=== PATIENT | male | born 1945 | race Caucasian/White ===

== ENCOUNTER 2016-10-01 18:29 | Emergency (ER) | payer MEDICARE, BC ==
[2016-10-01 18:44] VITALS: BP 151/89
--- NOTE | 2016-10-01 19:03 | UC ---
Cardiac HPI - HPI Summary HPI Summary: The patient comes in today for: 1. Chest discomfort: Onset: Initially, a couple weeks ago. Palliative/provocative: TUMS helped but not as much as in the past. Body position affected it in the past, but not so much now. Exertion: Initially, he states that exertion has not made this worse, but his later states that yesterday he was not able to do his normal walk at that time because of chest discomfort. The patient states that he has had chest pain starting "a couple weeks ago" but states that he does not have chest pain now--but he states that he has heartburn like discomfort. Quality: Burning in the back of the throat. Initially, pressure-tightness. Region: Retrosternal Severity: 09/14 Time: Constant. Associated symptoms: Nausea: This morning. Diaphoresis: Present --"mild" now. Previous disease (cardiac): None. Lung disease: None. Cardiac testin stress test ok? 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 - Allergy/Home Medications Allergies/Adverse Reactions: Allergies Allergy/AdvReac Type Severity Reaction Status Date / Time Seasonal Allergies Allergy Congestion Uncoded 10/01/16 18:44 Home Medications: Home Medications Calcium Carbonate CHEW TAB* [Tums*] 3 tab PO PRN 10/01/16 [History] Cholecalciferol TAB* [Vitamin D TAB*] 10/01/16 [History] Coenzyme Q10 (Ubidecarenone) [Co Q-10] 10/01/16 [History] Vitamin B Complex CAP* [B Complex CAP*] 1 cap PO DAILY 10/01/16 [History Confirmed 10/01/16] PMH/Surg Hx/FS Hx/Imm Hx Previously Healthy: No - BPH Endocrine History Of: Reports: Dyslipidemia Denies: Diabetes, Thyroid Disease, Hyperthyroidism, Hypothyroidism Cardiovascular History Of: Denies: Cardiac Disorders, Hypertension, Pacemaker/ICD, Myocardial Infarction , Congestive Heart Failure, Atrial Fibrillation, Deep Vein Thrombosis, Bleeding Disorders Respiratory History Of: Denies: COPD, Asthma, Bronchitis, Pneumonia, Pulmonary Embolism GI/ History Of: Denies: Gastroesophageal Reflux, Ulcer, Gastrointestinal Bleed, Gall Bladder Disease, Kidney Stones, Diverticulitis, Renal Disease, Urosepsis Neurological History Of: Denies: TIA, CVA, Dementia, Seizures, Migraine Psychological History Of: Reports: Depression - No medications at this time. Denies: Anxiety, Bipolar Disorder, Schizophrenia, Post Traumatic Stress Disorder Cancer History Of: Denies: Lung Cancer, Colorectal Cancer, Breast Cancer, Prostate Cancer, Cervical Cancer Other History Of: Anticoagulant Therapy - Aspirin daily. Negative For: HIV, Hepatitis B, Hepatitis C - Surgical History Surgical History: Yes Surgery Procedure, Year, and Place: HERNIA REPAIR. SINUS SURGERY. POLYPS REMOVED/DEVIATED SEPTUM REPAIR IN NOSE - Family History Known Family History: Positive: Cardiac Disease - Parents had "heart" problems, stents, pacemaker., Hypertension, Diabetes - Social History Occupation: Retired Lives: With Family Alcohol Use: Daily Alcohol Amount: 1/DAY Substance Use Type: None Smoking Status (MU): Never Smoked Tobacco Review of Systems Constitutional: Negative Skin: Negative Eyes: Negative ENT: Negative Respiratory: Negative Cardiovascular: Chest Pain Gastrointestinal: Negative Genitourinary: Negative All Other Systems Reviewed And Are Negative: Yes Physical Exam Triage Information Reviewed: Yes Appearance: Well-Appearing, No Pain Distress, Well-Nourished Vital Signs: Initial Vital Signs Temp 98.4 F 10/01/16 18:40 Pulse 63 10/01/16 18:40 Resp 16 10/01/16 18:40 BP 151/89 10/01/16 18:40 Pulse Ox 95 10/01/16 18:40 Vital Signs Reviewed: Yes Eyes: Positive: Conjunctiva Clear. Negative: Discharge ENT: Positive: Hearing grossly normal. Negative: Pharyngeal erythema, Nasal congestion, Nasal drainage, TM bulging, TM dull, TM red, Tonsillar swelling, Tonsillar exudate Dental: Negative: Gross Decay/Caries @, Dental Fracture @ Neck: Positive: Supple, Nontender, No Lymphadenopathy. Negative: Nuchal Rigidity Respiratory: Positive: Lungs clear, No respiratory distress, No accessory muscle use. Negative: Crackles, Wheezing Cardiovascular: Positive: RRR, No Murmur Abdomen Description: Positive: Nontender, No Organomegaly, Soft. Negative: Distended Musculoskeletal: Positive: Strength Intact, ROM Intact, No Edema, Other: - No chest tenderness to palpation. Neurological: Positive: Alert Psychological: Positive: Age Appropriate Behavior, Consolable Skin: Negative: rashes, breakdown - Assessment/Plan Course Of Treatment: Patient was told that I was concerned that his chest discomfort may be related to his heart and for that reason recommend that he go to the ER for further testing. He agreed. Last ASA was last night so he will be getting 324 mg before he leaves. He states that he will drive himself there. - Clinical Impression Provider Diagnoses: Chest pain, atypical - Physician Notifications Discussed Patient Care With: Dr. Lujan Time Discussed With Above Provider: 19:23 Discharge - Discharge Plan Condition: Stable Disposition: AGAINST MEDICAL ADVICE
[2016-10-01] MEDS ORDERED: Aspirin Low Dose CHEW TAB* 81 MG PO ONE (19:20)
== END 2016-10-01 19:40 | disposition left against medical advice (07) ==
LOC: UCEAST 18:29
DX: R07.89 Other chest pain (principal); R61 Generalized hyperhidrosis
CPT/HCPCS: 93005; 99212; A9270-GY; G0463

== ENCOUNTER 2016-10-01 19:46 | Observation (INO) | payer BC, MEDICARE ==
[2016-10-01] MEDS ORDERED: Aspirin Low Dose CHEW TAB* 81 MG PO ONE (20:44)
--- NOTE | 2016-10-01 21:01 | ED ---
Vicky Dover Michael, scribed for Tres Gee MD on 10/01/16 at 2047 . HPI Chest Pain - HPI Summary HPI Summary: 71 y/o male comes to the ED presenting with constant mild CP that started today. The pt describes the CP as burning with nausea and no vomiting. He took 3000mg of TUMS Antacid which alleviated the nausea and not the burning CP. The pt also c/o intermittent episodes of chest tightness for the past couple of weeks. The chest tightness is aggravated with exertion and alleviated with rest. He has not followed up with a decision support manager for the previous episodes of CP. - History of Current Complaint Chief Complaint: EDChestPainROMI Time Seen by Provider: 10/01/16 20:36 Hx Obtained From: Patient, Medical Records Onset/Duration: Started Hours Ago, Still Present Timing: Constant Initial Severity: Moderate Current Severity: Moderate Pain Intensity: 0 Pain Scale Used: 0-10 Numeric Chest Pain Location: Diffuse Chest Pain Radiates: No Character: Burning, Tightness Aggravating Factor(s): Exertion Alleviating Factor(s): Rest Associated Signs and Symptoms: Positive: Chest Pain, Nausea. Negative: Vomiting - Allergy/Home Medications Allergies/Adverse Reactions: Allergies Allergy/AdvReac Type Severity Reaction Status Date / Time Seasonal Allergies Allergy Congestion Uncoded 10/01/16 18:44 PMH/Surg Hx/FS Hx/Imm Hx Endocrine/Hematology History: Reports: Hx Anticoagulant Therapy - Aspirin daily. Denies: Hx Diabetes, Hx Systemic Lupus Erythematosus, Hx Thyroid Disease Cardiovascular History: Denies: Hx Congestive Heart Failure, Hx Deep Vein Thrombosis, Hx Hypertension , Hx Myocardial Infarction, Hx Pacemaker/ICD Respiratory History: Denies: Hx Asthma, Hx Chronic Obstructive Pulmonary Disease (COPD), Hx Lung Cancer, Hx Pneumonia, Hx Pulmonary Embolism GI History: Denies: Hx Gall Bladder Disease, Hx Gastrointestinal Bleed, Hx Ulcer, Hx Urosepsis History: Denies: Hx Dialysis, Hx Kidney Stones, Hx Renal Disease Musculoskeletal History: Denies: Hx Rheumatoid Arthritis Neurological History: Denies: Hx Dementia, Hx Migraine, Hx Seizures, Hx Transient Ischemic Attacks (TIA) Psychiatric History: Reports: Hx Depression - No medications at this time. Denies: Hx Anxiety, Hx Schizophrenia, Hx Bipolar Disorder - Cancer History Hx Chemotherapy: No - Surgical History Surgery Procedure, Year, and Place: HERNIA REPAIR. SINUS SURGERY. POLYPS REMOVED/DEVIATED SEPTUM REPAIR IN NOSE Infectious Disease History: No Infectious Disease History: Denies: Traveled Outside the [place] in Last 30 Days - Family History Known Family History: Positive: Cardiac Disease - Parents had "heart" problems, stents, pacemaker., Hypertension, Diabetes, Other - noncontirbutory - Social History Occupation: Retired Lives: With Family Alcohol Use: Daily Alcohol Amount: 1/DAY Substance Use Type: Reports: None Smoking Status (MU): Never Smoked Tobacco Review of Systems Negative: Fever Positive: Chest Pain Positive: Nausea. Negative: Vomiting All Other Systems Reviewed And Are Negative: Yes Physical Exam Triage Information Reviewed: Yes Vital Signs On Initial Exam: Initial Vitals Temp Pulse Resp BP Pulse Ox 98.2 F 67 14 126/80 98 10/01/16 20:18 10/01/16 20:18 10/01/16 20:18 10/01/16 20:18 10/01/16 20:18 Vital Signs Reviewed: Yes Appearance: Positive: Well-Appearing, No Pain Distress Skin: Positive: Warm Head/Face: Positive: Normal Head/Face Inspection Eyes: Positive: IZABELA ENT: Positive: Hearing grossly normal Neck: Positive: Supple Respiratory/Lung Sounds: Positive: Clear to Auscultation, Breath Sounds Present Cardiovascular: Positive: RRR Abdomen Description: Positive: Nontender, Soft Bowel Sounds: Positive: Present Musculoskeletal: Positive: Strength/ROM Intact Neurological: Positive: Sensory/Motor Intact, Alert, Oriented to Person Place, Time, Normal Gait Psychiatric: Positive: Affect/Mood Appropriate Diagnostics - Vital Signs Vital Signs Temp Pulse Resp BP Pulse Ox 10/01/16 20:18 98.2 F 67 14 126/80 98 - Laboratory Result Diagrams: 10/01/16 21:20 10/01/16 21:20 Lab Statement: Any lab studies that have been ordered have been reviewed, and results considered in the medical decision making process. - Radiology CXR Xray Interpretation: No Acute Changes Radiology Interpretation Completed By: Radiologist - EKG EK EKG Rhythm: Sinus Bradycardia - 51 bpm EKG Interpretation: LBBB Chest Pain Course/Dx - Course Course Of Treatment: Discussed pt care with Dr. Oneal (Hospitalist) at 2150 and pt will be accepted as an admission. - Diagnoses Provider Diagnoses: ACS (acute coronary syndrome) Discharge - Discharge Plan Condition: Stable Disposition: ADMITTED TO [facility] The documentation as recorded by the shaylaibeVicky Michael accurately reflects the service I personally performed and the decisions made by me, Tres Gee MD.
--- NOTE | 2016-10-01 21:19 | RAD ---
HISTORY: Chest pain COMPARISONS: September 15, 2014 VIEWS: 2: Frontal dual-energy and lateral views of the chest. FINDINGS: CARDIOMEDIASTINAL SILHOUETTE: The cardiomediastinal silhouette is normal. SAUNDRA: The saundra are normal. PLEURA: The costophrenic angles are sharp. No pleural abnormalities are noted. LUNG PARENCHYMA: There is stable small nodule in the periphery of the left lower lung ABDOMEN: The upper abdomen is clear. There is no subphrenic gas. BONES AND SOFT TISSUES: No bone or soft tissue abnormalities are noted. OTHER: None. IMPRESSION: NO ACTIVE CARDIOPULMONARY DISEASE.
[2016-10-01 21:34] LABS: Hematocrit 43 % (42-52); Hemoglobin 14.1 g/dl (14.0-18.0); Mean Corpuscular HGB Conc 33 g/dl (31-36); Mean Corpuscular Hemoglobin 32 pg (27-31); Mean Corpuscular Volume 95 fL (80-94); Mean Platelet Volume 9 um3 (7.4-10.4); Red Blood Count 4.48 10^6/ul (4.0-5.4); Red Cell Distribution Width 13 % (10.5-15); White Blood Count 6.7 10^3/ul (3.5-10.8)
[2016-10-01] MEDS ORDERED: CMCS: Melatonin (NF) 3 MG TAB PO PRN (21:38)
[2016-10-01] MEDS ORDERED: Morphine INJ* 2 MG/ML 1 ML SYRINGE IV PRN (21:38)
[2016-10-01] MEDS ORDERED: Acetaminophen TAB* 325 MG PO PRN (21:38)
[2016-10-01] MEDS ORDERED: Ondansetron INJ* 2 MG/ML VIAL IV PRN (21:38)
[2016-10-01] MEDS ORDERED: NS 0.9% 1000 ML* 1,000 ML IV SCH (21:45)
[2016-10-01] MEDS ORDERED: Heparin DRIP 25,000 UNITS(*) 25,000 UNITS/500 ML BAG IVPB SCH (21:45)
[2016-10-01 21:50] LABS: Albumin 3.8 g/dL (3.2-5.2); BUN/Creatinine Ratio 26.5 (8-20); EGFR African American 92.1 (>60); EGFR Non-African American 71.6 (>60); Globulin 3.1 g/dL (2-4); Potassium 4.2 mmol/L (3.5-5.0); Total Bilirubin 0.6 mg/dL (0.2-1.0); Total Protein 6.9 g/dL (6.4-8.9)
[2016-10-01 21:52] LABS: Troponin I 0.01 ng/mL (<0.04)
--- NOTE | 2016-10-01 22:29 | HP ---
H&P (Free Text) History and Physical: PCP: Patricia Cai MD Date/Time of Evaluation: 10/01/20162134 CC: chest pain HPI: Mr Dutta is a 71YO male w/o cardiac or vascular HX who reports sudden onset of severe "heartburn" while eating breakfast containing hot sauce. He took TUMS which typically provides rapid relief, but this time did not. It spontaneously subsided to a mild level over an hour or so, but has remained throughout the day. There as associated nausea w/o emesis, but no SOB, sweating , palpitations, or light-headedness. He decided to present to urgent care who referred him on to [facility] ED for further evaluation. Additionally, he has felt more fatigued for the past 2 months. He had an episode of 5/10 chest pressure without associated s/s ~2 weeks ago while shoveling snow that subsided over the hour following cessation. Yesterday while walking [place] and [place] hills [place] he again developed a moderate chest pressure without associations which subsided with rest. Work up is essentially negative with normal vitals, reasonable normal labs, & benign ECG/CXR. Will be admitted for unstable angina. PMedHx LBBB, old BPH depression Allergies Seasonal Allergies Allergy (Uncoded 10/01/16 18:44) Congestion Ambulatory Orders Nursing to reconcile Aspirin Low Dose CHEW TAB* [Aspirin Low Dose TAB*] 81 mg PO DAILY 06/13/13 Cetirizine* [ZyrTEC*] 10 mg PO DAILY PRN 06/13/13 Tamsulosin CAP* [Flomax CAP*] 0.4 mg PO DAILY 06/13/13 Calcium Carbonate CHEW TAB* [Tums*] 3 tab PO PRN 10/01/16 Cholecalciferol TAB* [Vitamin D TAB*] 10/01/16 Coenzyme Q10 (Ubidecarenone) [Co Q-10] 10/01/16 Vitamin B Complex CAP* [B Complex CAP*] 1 cap PO DAILY 10/01/16 PSurgHx nasal surgery R inguinal hernia repair SocHx: no tobacco or recreational drugs, 1-2 alcoholic drinks daily; lives with his ; retired client service professional; full code status FamHx: no early onset heart disease; Mother: colon CA passed in her 80s; Father : colon CA passed in his 90s ROS: as above, otherwise reviewed and all were negative Constitutional: NAD, normally developed, well-nourished elderly white male vitals: Vital Signs Temp 36.8 C 10/01/16 20:18 Pulse 52 10/01/16 21:30 Resp 19 10/01/16 21:30 BP 137/86 10/01/16 21:30 Pulse Ox 96 10/01/16 21:30 Intake & Output 09/30/16 10/01/16 10/01/16 23:59 11:59 23:59 Weight 74.843 kg HEENM: atraumatic; sclera/conjunctiva: non-icteric/clear; hearing: clinically intact; oropharynx: clear, mucosa moist Neck: soft tissue: non-tender; thyroid: normal Pulmonary: clear to auscultation bilaterally, good aeration, no accessory muscle use CV: RR/RR, normal S1S2, no carotid bruit, no jugular venous distention, 2+ B DP/ PT, no edema Abdominal: soft, non-distended, non-tender, no rebound/guarding/rigidity, normoactive bowel sounds, no hepatosplenomegaly or masses, no costovertebral angle tenderness Musculoskeletal: general: non-tender, grossly intact; gait: stable Integumental: normal appearance and texture of exposed skin Psychiatric orientation: AA&O to PPS affect: calm mood: pleasant eye contact: good content: reliable responses: timely insight: good to fair Testing: Lab Results 10/01/16 10/01/16 10/01/16 Range/Units 21:20 21:20 21:20 WBC 6.7 (3.5-10.8) 10^3/ul RBC 4.48 (4.0-5.4) 10^6/ul Hgb 14.1 (14.0-18.0) g/dl Hct 43 (42-52) % MCV 95 H (80-94) fL MCH 32 H (27-31) pg MCHC 33 (31-36) g/dl RDW 13 (10.5-15) % Plt Count 150 (150-450) 10^3/ul MPV 9 (7.4-10.4) um3 Neut % (Auto) 59.9 (38-83) % Lymph % (Auto) 29.5 (25-47) % Rich % (Auto) 6.0 (1-9) % Eos % (Auto) 3.9 (0-6) % Baso % (Auto) 0.7 (0-2) % Absolute Neuts (auto) 4.0 (1.5-7.7) 10^3/ul Absolute Lymphs (auto) 2.0 (1.0-4.8) 10^3/ul Absolute Monos (auto) 0.4 (0-0.8) 10^3/ul Absolute Eos (auto) 0.3 (0-0.6) 10^3/ul Absolute Basos (auto) 0 (0-0.2) 10^3/ul Absolute Nucleated RBC 0 10^3/ul Nucleated RBC % 0 Sodium 138 (133-145) mmol/L Potassium 4.2 (3.5-5.0) mmol/L Chloride 106 (101-111) mmol/L Carbon Dioxide 27 (22-32) mmol/L Anion Gap 5 (2-11) mmol/L BUN 27 H (6-24) mg/dL Creatinine 1.02 (0.67-1.17) mg/dL Est GFR ( Amer) 92.1 (>60) Est GFR (Non-Af Amer) 71.6 (>60) BUN/Creatinine Ratio 26.5 H (8-20) Glucose 87 (70-100) mg/dL Lactic Acid 0.7 (0.5-2.0) mmol/L Calcium 10.0 (8.6-10.3) mg/dL Total Bilirubin 0.60 (0.2-1.0) mg/dL AST 22 (13-39) U/L ALT 19 (7-52) U/L Alkaline Phosphatase 46 (34-104) U/L Troponin I 0.01 (<0.04) ng/mL Total Protein 6.9 (6.4-8.9) g/dL Albumin 3.8 (3.2-5.2) g/dL Globulin 3.1 (2-4) g/dL Albumin/Globulin Ratio 1.2 (1-3) ECG, personally reviewed: sinus LBBB bradycardia rate 51 CXR, personally reviewed: IMPRESSION: NO ACTIVE CARDIOPULMONARY DISEASE. Impression: 71M presenting with symptoms concerning for unstable angina DIAGNOSIS & PLAN Primary unstable angina : old LBBB on ECG : telemetry : aspirin : metoprolol : heparin GTT : 1/2" nitropaste : supplemental oxygen : ECHO in AM : exercise NST in AM : trend troponin : consider cardiology consult in AM pending above results : supportive care Secondary BPH : review meds once reconciled depression : review meds once reconciled Admission Rational: CDU observation for unstable angina DVTp: heparin GTT Code Status: full HCP:
[2016-10-01] MEDS: Pantoprazole IV* 40 MG IV SCH (23:24)
[2016-10-01] MEDS: Nitroglycerin 2% OINT* 1 GM PAK TOPICAL SCH (23:24)
[2016-10-01] MEDS: Metoprolol Succinate XL TAB* 25 MG PO ONE ×2 (23:24→23:38)
[2016-10-02] MEDS ORDERED: Heparin VIAL(*) 5000 UNITS/ML VIAL (FIVE THOUSAND) IV SCH (01:00)
[2016-10-02] MEDS: Nitroglycerin 2% OINT* 1 GM PAK TOPICAL SCH ×2 (05:10→11:27)
[2016-10-02] MEDS: Nitro Patch/OINT Remove PATCH OFF SCH ×2 (05:10→12:41)
[2016-10-02] MEDS: Pantoprazole IV* 40 MG IV SCH (07:50)
[2016-10-02] MEDS ORDERED: Docusate CAP* 100 MG PO SCH (09:00)
[2016-10-02] MEDS ORDERED: Aspirin TAB* 325 MG PO SCH (09:00)
--- NOTE | 2016-10-02 10:40 | ECHO ---
Patient: GLENNA CORTES [facility] Rec#: [id number] : 1945 Date: 10/02/2016 Age: 71y Height: 180.34 cm / 71.0 in Weight: 74.84 kg / 164.9 lbs Sex: M BSA: 1.94 Room#: [facility] Admit Date#: 10/01/2016 Type: Inpatient Referring: Marin Oneal MD Reading: Chad Mendiola MD Clearing Supervisor: Cherelle Shah [facility] Clearing Supervisor: Kayli Taylor CC: Dedrick Cai MD Transthoracic Echocardiogram Indication: Unstable angina BP: 146/77 HR: 50 Rhythm: Bradycardia Findings History: LBBB Technical Comments: The study quality is good. Completed at 0907. Left Ventricle: The left ventricular chamber size is normal. Mild concentric left ventricular hypertrophy is observed. Left ventricular systolic function is at the lower limits of normal. The estimated ejection fraction is 50-55%. There is a left ventricular septal wall motion abnormality observed, possibly due to the presence of a left bundle branch block. Abnormal left ventricular diastolic filling is observed, consistent with impaired relaxation. Left Atrium: The left atrial chamber size is normal. Right Ventricle: The right ventricular cavity size is normal. The right ventricular global systolic function is normal. The septum has abnormal paradoxical motion consistent with left bundle branch block. Right Atrium: The right atrium is slightly dilated. A prominent chiari network is noted in the right atrium. Aortic Valve: The aortic valve is trileaflet. The aortic valve leaflets are mildly thickened. There is a trace of aortic regurgitation. There is no evidence of aortic stenosis. Mitral Valve: The mitral valve leaflets are mildly thickened. There is mild mitral regurgitation. There is no evidence of mitral stenosis. Tricuspid Valve: The tricuspid valve leaflets are normal. There is mild tricuspid regurgitation. No pulmonary hypertension is noted. There is no tricuspid stenosis. Pulmonic Valve: The pulmonic valve appears normal. There is mild to moderate pulmonic regurgitation. There is no pulmonic stenosis. Pericardium: The pericardium appears normal. Aorta: There is moderate dilatation of the ascending aorta. There is no dilatation of the aortic arch. There is no dilation of the aortic root. Pulmonary Artery: The main pulmonary artery appears normal. Venous: The inferior vena cava is dilated. There is a greater than 50% respiratory change in the inferior vena cava dimension. Conclusions Left ventricular systolic function is at the lower limits of normal. MIld concentric LV hypertrophy. The estimated ejection fraction is 50-55%. There is a left ventricular septal wall motion abnormality observed, possibly due to the presence of a left bundle branch block. Abnormal left ventricular diastolic filling is observed, consistent with impaired relaxation. There is a trace of aortic regurgitation. There is mild mitral regurgitation. There is mild tricuspid regurgitation. There is mild to moderate pulmonic regurgitation. The right atrium is slightly dilated. A prominent chiari network is noted in the right atrium. There is moderate dilatation of the ascending aorta. No reports of prior studies are offered for comparison. Measurements Name Value Normal Range RVIDd (AP) 2D 2.6 cm (0.9 - 2.6) RVDdMajor (2D) 3.4 cm (2.2 - 4.4) RAd ISD 4CH 5.8 cm (3.4 - 4.9) RA (A4C)W 4.4 cm (2.9 - 4.6) IVSd (2D) 1 cm (0.6 - 1) LVPWd (2D) 1.3 cm (0.6 - 1) LVIDd (2D) 4.6 cm (3.6 - 5.4) LVIDs (2D) 2.8 cm - LV FS (2D) 39 % (25 - 45) Aortic Annulus 2 cm (1.4 - 2.6) Ao root diameter (2D) 3.4 cm (2.1 - 3.5) Ascending Ao 4 cm (2.1 - 3.4) Aortic arch 2.3 cm (1.8 - 3.4) Descending Ao 0.7 cm - LA dimension (AP) 2D 3.6 cm (2.3 - 3.8) LAd ISD 4CH 4.5 cm (2.9 - 5.3) LA ISD 4CH W 4.2 cm (2.5 - 4.5) Name Value Normal Range LA ESV SP 4CH (A/L) 45 ml - LA ESV SP 2CH (A/L) 63 ml - LA ESV BP (A/L) 59 ml - LA ESV BP (A/L) index 30.38 ml/m2 - LA ESV SP 4CH (MOD) 40 ml - LA ESV SP 2CH (MOD) 60 ml - Name Value Normal Range MV E-wave Vmax 0.5 m/sec - MV deceleration time 378 msec - MV A-wave Vmax 0.9 m/sec - MV E:A ratio 0.5 ratio - LV septal e' Vmax 0.04 m/sec - LV lateral e' Vmax 0.07 m/sec - LV E:e' septal ratio 12.5 ratio - LV E:e' lateral ratio 7.14 ratio - Name Value Normal Range AV Vmax 1.6 m/sec - AV VTI 37 cm - AV peak gradient 10.59 mmHg - AV mean gradient 5.13 mmHg - LVOT Vmax 1.1 m/sec - LVOT VTI 24 cm - LVOT peak gradient 4.59 mmHg - LVOT mean gradient 2.31 mmHg - LUZ Vmax 0.7 m/sec - Name Value Normal Range TR Vmax 2.5 m/sec - TR peak gradient 25 mmHg - RAP 8 mmHg - RVSP 33 mmHg - IVC diameter 2.1 cm - Name Value Normal Range PV Vmax 0.9 m/sec - PV peak gradient 3.24 mmHg - UT end-diastolic Vmax 1 m/sec -
--- NOTE | 2016-10-02 12:09 | RAD ---
Edited for charges. INDICATION: Unstable angina. COMPARISON: There are no prior studies available for comparison. Technique: A single day myocardial perfusion stress study was performed. Initially the resting study was performed. The patient was given an intravenous injection of 10.3 mCi of technetium 99m tetrofosmin and and the heart was imaged in multiple projections. The patient returned later in the day and under the direction of Dr. Michaud, the patient was given intervenous injection of Lexiscan. Subsequently the patient was given intravenous injection of 25.3 mCi of technetium 99m tetrofosmin and the heart was imaged in multiple projections. Images were reconstructed in the axial, sagittal and coronal planes and in a 3- D format. FINDINGS: There is mild hypokinesis within the septum and adjacent inferior wall. The left ventricular ejection fraction is calculated to be 57%. Review of the images demonstrates a small defect in the apex centered toward the septum and inferior wall which appears similar on both the post pharmacologic stress and resting images suggestive of a small infarct. No other focal abnormalities are seen. IMPRESSION: NO EVIDENCE FOR ISCHEMIA, FINDINGS SUGGESTIVE OF A SMALL INFARCT IN THE APEX CENTERED TOWARD THE SEPTUM. ASSESSMENT: Low risk Based on imaging criteria from ACC/AHA 2002 Guideline Update for the Management of Patients With Chronic Stable Angina Table 23. Noninvasive Risk Stratification. MTDD
[2016-10-02] MEDS ORDERED: Regadenoson* 0.4 MG/5 ML SYRINGE ONE ×2 (12:10→12:26)
[2016-10-02 14:56] VITALS: BP 143/82
--- NOTE | 2016-10-03 03:00 | DS ---
DISCHARGE SUMMARY: DATE OF ADMISSION: 10/01/16 DATE OF DISCHARGE: 10/02/16 PRIMARY CARE PROVIDER: Dr. Cai. DISCHARGE DIAGNOSIS: Chest pain with low probability cardiac stress test obtained on 10/02/16. LABORATORY DATA AND STUDIES PERFORMED DURING THE HOSPITAL STAY: Included troponins that were negative throughout the patient's hospital stay. Transthoracic echocardiogram obtained today showed EF of 50% to 55%. There was left ventricular septal wall motion abnormality observed due to presence of left bundle branch block. There was abnormal left ventricular diastolic filling observed consistent with impaired relaxation with trace aortic regurgitation, mild mitral regurgitation, mild tricuspid regurgitation, and mild -to-moderate pulmonic regurgitation. There was moderate dilatation of the ascending aorta. The patient's nuclear portion of his cardiac stress test showed no evidence for ischemia. Findings suggestive of small infarct in the apex centered towards the septum. The EF was calculated as 57%. It was assessed as low risk since there were no reversible abnormalities noted. MEDICATIONS AT DISCHARGE: Include: 1. Atorvastatin 40 mg daily. 2. Aspirin 81 mg daily. 3. Zyrtec 10 mg daily p.r.n. 4. Flomax 0.4 mg daily. 5. Multivitamin daily. HOSPITALIZATION COURSE: Mr. Dutta is a 71-year-old male with history of chronic left bundle branch block, who presented complaining of severe heartburn and chest pain due to that on 10/01/16. For further details of the patient's presentation, please see history and physical dictated at admission by Dr. Oneal. The patient was initially placed on heparin drip due to question of unstable angina. His troponins continued to be negative throughout his hospital stay. His pain resolved by the time of admission. His transthoracic echocardiogram showed no marked abnormalities as above. His stress test was negative for reversible changes, although the patient does have a small area of reversible perfusion defect at the apex as described above. At this point, the patient is recommended to follow up with Dr. Cai in 4 to 7 days after discharge. PHYSICAL EXAMINATION AT DISCHARGE: Blood pressure of 143/82, heart rate of 65 and regular, respiratory rate 16, oxygen saturation 98 % on room air, temperature 98.0. General: The patient is a very pleasant 71-year male, who is in no acute distress. Alert, awake, and oriented x3. HEENT: Head atraumatic, normocephalic. Eyes: Pupils equal, reactive to light and accommodation. Oropharynx clear. Mucosa moist. Neck: Supple. No JVD, no bruits bilaterally. Cardiovascular: Regular rate and rhythm. No murmur. Respiratory: Clear to auscultation bilaterally. Abdomen: Soft, nontender. Bowel sounds present in all 4 quadrants. Extremities: There is no edema. Pulses +2 bilaterally. No clubbing or cyanosis. Neuro Evaluation: Speech clear. Cranial nerves II through XII grossly intact. Motor strength is 5/5 bilaterally. Please note that this is a short summary of the patient's hospital stay, please refer to further medical records for details. CC: Dr. Cai* [id number]/CPS #: [id number]
== END 2016-10-02 16:04 | disposition home or self-care (01) ==
LOC: ED 19:46 → MEDTELE 22:04
PROVIDERS: ADMIT Hospitalist; ATTEND Internal Medicine
DX: R07.9 Chest pain, unspecified (principal); R11.0 Nausea; R53.83 Other fatigue; I44.7 Left bundle-branch block, unspecified; N40.0 Benign prostatic hyperplasia without lower urinary tract symptoms; F32.9 Major depressive disorder, single episode, unspecified; Z79.82 Long term (current) use of aspirin; Z79.899 Other long term (current) drug therapy; I51.7 Cardiomegaly; I34.0 Nonrheumatic mitral (valve) insufficiency; I37.1 Nonrheumatic pulmonary valve insufficiency; I36.1 Nonrheumatic tricuspid (valve) insufficiency; R61 Generalized hyperhidrosis
CPT/HCPCS: 36415; 71020; 78452; 80053; 83605; 84484; 85025; 85730; 93005; 93017; 93306; 96372; 96374; 99283; A9270-GY; A9502; G0378; J1644; J2785